=== PATIENT | male | born 1995 | race African-American/Black ===

== ENCOUNTER 2020-03-19 20:18 | Emergency (ER) | payer SELFPAY ==
[~2020-03-19 20:18] MED LIST: Iopamidol 370 76% 100 ML VIAL ONE
[2020-03-19] MEDS ORDERED: Morphine 2 MG/ML SYRINGE ONE (21:26)
[2020-03-19] MEDS ORDERED: Ondansetron PF 4 MG/2 ML Vial ONE (21:26)
[2020-03-19] MEDS ORDERED: Sodium Chloride 0.9% 1,000 ML ONE ×2 (21:26→22:42)
[2020-03-19 21:42] LABS: ALT (SGPT) 68 U/L (8-55); AST (SGOT) 31 U/L (5-34); Albumin 4.3 g/dL (3.5-5.0); Alkaline Phosphatase 56 U/L (40-110); Anion Gap 19 mmol/L (10-20); BUN (Urea Nitrogen) 10 mg/dL (8.9-20.6); Band 4 % (5-11); Bilirubin, Total 0.5 mg/dL (0.2-1.2); Calc. Creatinine Clearance 0 mL/min (70-130); Calcium 9.8 mg/dL (7.8-10.44); Carbon Dioxide 23 mmol/L (22-29); Chloride 101 mmol/L (98-107); Estimated GFR-MDRD Greater than 90; Globulin 4.4 g/dL (2.4-3.5); Glucose 100 mg/dL (70-105); Hemoglobin 15.7 g/dL (14.0-18.0); Lymphocytes 19 % (21-51); MDiff Complete? YES; Mean Corpuscular HGB CONC 31.6 g/dL (32.0-36.0); Mean Corpuscular Hemoglobin 28.1 pg (27.0-31.0); Mean Corpuscular Volume 88.9 fL (78.0-98.0); Mean Platelet Volume 10.4 fL (7.4-10.4); Metamyelocyte 2 % (0-0); Monocytes 5 % (0-10); Neutrophil 70 % (42-75); Platelet Count 256 thou/uL (130-400); Platelet Morphology Comment Appears Adequate; Potassium 3.8 mmol/L (3.5-5.1); Protein, Total 8.7 g/dL (6.0-8.3); RBC Distribution Width 12.6 % (11.5-14.5); RBC Morphology Normal; Sodium 139 mmol/L (136-145); White Blood Cell (WBC) Count 14.2 thou/uL (4.8-10.8)
[2020-03-19] MEDS ORDERED: cefTRIAXone\\ROCEPHIN 2 GM VIAL ONE (21:50)
[2020-03-19] MEDS ORDERED: Sodium Chloride 0.9% 100 ML ONE (21:50)
--- NOTE | 2020-03-19 22:15 | CT ---
EXAM: CT NECK SOFT TISSUE POST CONTRAST: HISTORY:Tonsillar swelling. Difficulty swallowing. Difficulty breathing. COMPARISON:None CORRELATION:None FINDINGS: Brain parenchyma: No pathologic enhancement of the visualized brain parenchyma. Sinuses: Normal mucosal thickening of the maxillary sinuses. Adequate mastoid air cell and middle ear aeration. Nasopharynx:Increased soft tissue fullness suggesting adenoid tonsillar hypertrophy. Oral cavity:Narrowing of the aerodigestive tract secondary to a peripherally enhancing centrally hypo dense focus at the right tonsillar pillar measuring 2.2 x 1.5 cm. Edematous change extends in a cranial fashion towards the nasopharynx. There is hypertrophy of the left palatine tonsil. There is r esultant narrowing of the aerodigestive tract. Hypopharynx: Mild mucosal prominence. Epiglottis has a normal caliber. Preepiglottic fat is preserved . Mild edema in the retropharyngeal space/prevertebral space. Edematous changes may also involve the longus coli muscles. Larynx: No mucosal abnormality. Paraspinal muscles: Symmetric attenuation of the paraspinal muscles and symmetric attenuation of the sternocleidomastoid muscles.. Parotid and salivary glands: Symmetric attenuation of the parotid and submandibular glands Thyroid gland: Unremarkable. Spine: Vertebral body height is maintained. No fracture. No significant central canal stenosis or sig nificant neural foraminal narrowing. Limited evaluation due to technique. Lymph nodes: Enlarged right level 2 lymph node measures 1.8 x 1.3 cm. Enlarged right level 5 lymph no de measures 1.9 x 1.2 cm. Lung apices and upper mediastinum: No acute abnormality. IMPRESSION: 1. Tonsillar hypertrophy. There is a right peritonsillar abscess. Resultant narrowing of the posterio r oral cavity and hypopharynx. 2. Mild retropharyngeal/prevertebral soft tissue swelling. Mild edematous changes involving the longu s colli muscles. 3. Reactive right neck lymph nodes.
[2020-03-19] MEDS ORDERED: metroNIDAZOLE 500 MG/100 ML BAG ONE (22:29)
[2020-03-19] MEDS ORDERED: Morphine 4 MG/ML VIAL ONE (22:29)
[2020-03-19] MEDS ORDERED: Dexamethasone 20 MG/5 ML VIAL ONE (22:42)
== END 2020-03-19 23:49 | disposition short-term general hospital (02) ==
LOC: NAV ERS 20:18
DX: J36 Peritonsillar abscess (principal); D72.829 Elevated white blood cell count, unspecified
CPT/HCPCS: 36415; 70491; 80053; 83605; 85025; 87040; 87081; 87430; 96365; 96367; 96375; 96376; J0696; J1100; J2270; J2405; J3490; J7050; Q9967

== ENCOUNTER 2021-08-09 18:06 | Emergency (ER) | payer SELFPAY ==
[2021-08-10 17:10] LABS: SARS-CoV-2 PCR by NAA Not Detected (NotDetected)
== END 2021-08-09 18:45 | disposition home or self-care (01) ==
LOC: NAV ERS 18:06
DX: Z20.822 Contact with and (suspected) exposure to COVID-19 (principal)
CPT/HCPCS: 99283; U0003; U0005

== ENCOUNTER 2021-09-04 03:21 | Emergency (ER) | payer SELFPAY ==
[2021-09-04 03:41] LABS: Bilirubin Negative (Negative); Blood, Urine Large (Negative); Clarity Slightly Cloudy (Clear); Glucose, Urine (Dipstick) Negative (Negative); Ketone, Urine Negative (Negative); Leukocyte Small (Negative); Nitrite Negative (Negative); Protein, Urine (Dipstick) Trace mg/dL (Neg-Trace); pH, Urine 6.5 (5.0-9.0)
[2021-09-04 03:49] LABS: RBC/HPF 21-50 HPF (0-3)
[2021-09-04 03:50] LABS: Bacteria/HPF 2+ HPF (None Seen)
== END 2021-09-04 04:15 | disposition home or self-care (01) ==
LOC: NAV ERS 03:21
DX: R31.9 Hematuria, unspecified (principal)
CPT/HCPCS: 81003; 81015; 87086; 99283

== ENCOUNTER 2024-05-11 09:18 | Emergency (ER) | payer OTHER, SELFPAY ==
[2024-05-11] MEDS ORDERED: Acetaminophen 325 MG TAB ONE (09:39)
[2024-05-11 10:26] LABS: #Basophils 0.2 thou/uL (0.0-0.2); #Lymphocytes 2.6 thou/uL (1.20-3.40); #Monocytes 1.6 thou/uL (0.11-0.59); #Neutrophils 9.1 thou/uL (1.40-6.50); %Basophils 1.8 % (0.0-1.0); %Eosinophils 0.2 % (0.0-10.0); %Lymphocytes 19.1 % (21.0-51.0); %Monocytes 11.8 % (0.0-10.0); %Neutrophils 67.2 % (42.0-75.0); Bilirubin Small (Negative); Blood, Urine Moderate (Negative); Clarity Slightly Cloudy (Clear); Glucose, Urine (Dipstick) Negative (Negative); Hematocrit 45.4 % (42.0-52.0); Hemoglobin 13.7 g/dL (14.0-18.0); Ketone, Urine Trace mg/dL (Negative); Leukocyte Moderate (Negative); Mean Corpuscular HGB CONC 30.2 g/dL (32.0-36.0); Mean Corpuscular Hemoglobin 26.1 pg (27.0-31.0); Mean Corpuscular Volume 86.6 fl (78.0-98.0); Mean Platelet Volume 11.2 fL (7.4-10.4); Nitrite Negative (Negative); Platelet Count 157 10x3/uL (130-400); Protein, Urine (Dipstick) 100 mg/dL (Neg-Trace); Red Blood Cell (RBC) Count 5.25 mill/uL (4.70-6.10); White Blood Cell (WBC) Count 13.5 10x3/uL (4.8-10.8); pH, Urine 6.5 (5.0-9.0)
[2024-05-11 10:34] LABS: Bacteria/HPF 1+ HPF (None Seen); CAUTI Indications for Culture Dysuria,urgency,freq; WBC/HPF Greater than 50 HPF (0-3)
[2024-05-11 10:35] LABS: Urine Culture Reflex Yes Yes
[2024-05-11 10:39] LABS: Anion Gap 19 mmol/L (10-20); BUN (Urea Nitrogen) 10 mg/dL (8.9-20.6); Calc. Creatinine Clearance 0 mL/min (70-130); Calcium 8.4 mg/dL (7.8-10.44); Carbon Dioxide 20 mmol/L (22-29); Chloride 101 mmol/L (98-107); Estimated GFR 123; Glucose 80 mg/dL (70-105); Sodium 135 mmol/L (136-145)
[2024-05-11] MEDS ORDERED: cefTRIAXone (ROCEPHIN) 2 GM VIAL ONE (10:48)
[2024-05-11] MEDS ORDERED: Sodium Chloride 0.9% 100 ML ONE (10:48)
[2024-05-11] MEDS ORDERED: Sodium Chloride 0.9% 1,000 ML ONE (10:48)
[2024-05-12 18:19] LABS: Chlam.trachomatis by PCR,Urine DETECTED (NotDetected); GC N.gonorrhoeae PCR,UrineVOID Not Detected (NotDetected)
== END 2024-05-11 12:20 | disposition short-term general hospital (02) ==
LOC: NAV ERS 09:18
DX: M54.6 Pain in thoracic spine (principal); R50.9 Fever, unspecified; D72.829 Elevated white blood cell count, unspecified; N30.00 Acute cystitis without hematuria; F17.210 Nicotine dependence, cigarettes, uncomplicated
CPT/HCPCS: 80048; 81001; 85025; 86140; 87077; 87086; 87491; 87591; 96365; J0696; J3490; J7050

== ENCOUNTER 2024-07-22 22:15 | Emergency (ER) | payer SELFPAY ==
[2024-07-22] MEDS ORDERED: Ondansetron PF 4 MG/2 ML Vial ONE (22:45)
[2024-07-22] MEDS ORDERED: Ondansetron ODT 4 MG TAB ONE (22:46)
[2024-07-22] MEDS ORDERED: Dicyclomine 20 MG/2 ML VIAL ONE (22:50)
== END 2024-07-22 23:49 | disposition home or self-care (01) ==
LOC: NAV ERS 22:15
DX: K29.00 Acute gastritis without bleeding (principal); F17.290 Nicotine dependence, other tobacco product, uncomplicated
CPT/HCPCS: 96372; 99283; J2405; Q0162

== ENCOUNTER 2025-01-01 22:36 | Emergency (ER) | payer SELFPAY ==
[2025-01-01] MEDS ORDERED: Ondansetron PF 4 MG/2 ML Vial ONE (22:46)
[2025-01-01] MEDS ORDERED: Sodium Chloride 0.9% 1,000 ML ONE (22:46)
[2025-01-01 23:15] LABS: #Basophils 0.1 thou/uL (0.0-0.2); #Lymphocytes 1.7 thou/uL (1.20-3.40); #Monocytes 0.6 thou/uL (0.11-0.59); #Neutrophils 7.2 thou/uL (1.40-6.50); %Basophils 1.5 % (0.0-1.0); %Eosinophils 0.1 % (0.0-10.0); %Lymphocytes 17.7 % (21.0-51.0); %Monocytes 5.7 % (0.0-10.0); Hematocrit 48.8 % (42.0-52.0); Hemoglobin 15.1 g/dL (14.0-18.0); Mean Corpuscular Volume 83.9 fl (78.0-98.0); Mean Platelet Volume 11.8 fL (7.4-10.4); Platelet Count 196 10x3/uL (130-400); RBC Distribution Width 12.5 % (11.5-14.5); Red Blood Cell (RBC) Count 5.82 mill/uL (4.70-6.10); White Blood Cell (WBC) Count 9.6 10x3/uL (4.8-10.8)
[2025-01-01 23:32] LABS: ALT (SGPT) 23 U/L (Less than 45); AST (SGOT) 28 U/L (11-34); Albumin 4.8 g/dL (3.1-4.5); Alkaline Phosphatase 58 U/L (40-110); Anion Gap 20 mmol/L (10-20); BUN (Urea Nitrogen) 13 mg/dL (8.9-20.6); Bilirubin, Total 0.9 mg/dL (0.3-1.2); Calc. Creatinine Clearance 0 mL/min (70-130); Calcium 10.2 mg/dL (7.8-10.44); Carbon Dioxide 18 mmol/L (22-29); Chloride 106 mmol/L (98-107); Estimated GFR 120; Globulin 3.9 g/dL (2.4-3.5); Glucose 122 mg/dL (70-105); Lipase 7 U/L (8-78); Potassium 3.8 mmol/L (3.5-5.1); Protein, Total 8.7 g/dL (6.0-8.3); Sodium 140 mmol/L (136-145)
[2025-01-02] MEDS ORDERED: Dicyclomine 20 MG/2 ML VIAL ONE (00:14)
[2025-01-02] MEDS ORDERED: Ondansetron PF 4 MG/2 ML Vial ONE (00:37)
[2025-01-02] MEDS ORDERED: Sodium Chloride 0.9% 100 ML ONE (00:37)
[2025-01-02] MEDS ORDERED: Ketorolac Tromethamine 30 MG (1 mL) VIAL ONE (00:40)
== END 2025-01-02 01:44 | disposition home or self-care (01) ==
LOC: NAV ERS 22:36
DX: K52.9 Noninfective gastroenteritis and colitis, unspecified (principal)
CPT/HCPCS: 74177; 80053; 83690; 85025; 96361; 96372; 96374; 96375; 96376; J1885; J2405; J7030; Q9967

== ENCOUNTER 2025-05-24 12:38 | Emergency (ER) | payer OTHER, SELFPAY ==
[2025-05-24] MEDS ORDERED: Lidocaine Viscous Sol 2% 15 ml UD Cup ONE (13:25)
[2025-05-24] MEDS ORDERED: Mag-Al Plus 1200/1200/120 MG (30 mL) UDCUP ONE (13:25)
== END 2025-05-24 13:53 | disposition home or self-care (01) ==
LOC: NAV ERS 12:38
DX: J06.9 Acute upper respiratory infection, unspecified (principal); B34.9 Viral infection, unspecified; K29.70 Gastritis, unspecified, without bleeding
CPT/HCPCS: 87426; 99284